=== PATIENT | female | born 1965 | race Caucasian/White ===

== ENCOUNTER 2024-02-22 10:08 | Day surgery (SDC) | payer BC ==
[~2024-02-22 10:08] MED LIST: LIDOCAINE 1% (10MG/ML) FOR IV START INTRADERMA PRN
[2024-02-22 11:21] VITALS: TEMP 97
[2024-02-22] MEDS: IV FLUID CONTINUATION 1,000 ML IV ONE (11:21)
[2024-02-22] MEDS: LACTATED RINGERS 1,000 ML IV SCH (11:23)
[2024-02-22] MEDS ORDERED: PROPOFOL 10 MG/ML 20 ML VIAL IV ONE (12:15)
--- NOTE | 2024-02-22 12:23 | P.PCN ---
Date of Procedure: 02/22/24 Procedure(s) Performed: BRIEF HISTORY: Patient is a 58-year-old, pleasant, white female scheduled follow-up upper endoscopy for evaluation of worsening GERD for the last few months duration. She is presently on Nexium 40 mg twice daily with some help.. PROCEDURE PERFORMED: Esophagogastroduodenoscopy with biopsy. PREOPERATIVE DIAGNOSIS: Longstanding history of GERD with worsening symptoms today. IV sedation per anesthesia. PROCEDURE: After informed consent was obtained, the patient was brought into the endoscopy unit. IV sedation was administered by Anesthesia under continuous monitoring. Initially the Olympus GIF-140 video endoscope was inserted into the mouth. Esophagus intubated without any difficulty. It was gradually advanced into the stomach and duodenum and carefully examined. The bulb and the second part of the duodenum appeared normal. The scope at this time was withdrawn to the stomach, adequately insufflated with air, and upon careful examination, mucosa of the antrum, patchy areas of erythema consistent with gastritis and biopsies were done from this area. Multiple small gastric polyps noted in the gastric body which were biopsied. Mucosa of the body, cardia and the fundus appeared normal. The scope was then withdrawn into the esophagus. Small sliding-type hiatal hernia noted. The GE junction was located at 39 cm from the incisors. It appeared irregular but there was no evidence of Casas's esophagus. The rest of the esophagus appeared normal. There were no erosions or ulcerations seen and the patient tolerated the procedure well. IMPRESSION: 1. Mild antral gastritis. 2. Small hiatal hernia but no evidence of Casas's esophagus. 3. Multiple small gastric polyps RECOMMENDATIONS: The findings of this examination were discussed with the patient as well as her family.. She was advised to follow-up with the biopsy results. Continue with Nexium 20 mg twice daily and follow antireflux measures.
[2024-02-22 12:31] VITALS: RESP 16
[2024-02-22 12:46] VITALS: BP 112/73; PULSE 73
== END 2024-02-22 13:07 | disposition home or self-care (01) ==
LOC: ORWHC2ENDO 10:08
PROVIDERS: ATTEND Internal Medicine Gastroenterology
DX: K29.50 Unspecified chronic gastritis without bleeding (principal); K31.7 Polyp of stomach and duodenum; K44.9 Diaphragmatic hernia without obstruction or gangrene; K21.9 Gastro-esophageal reflux disease without esophagitis; I47.10 Supraventricular tachycardia, unspecified; Z88.0 Allergy status to penicillin; Z79.899 Other long term (current) drug therapy; Z98.890 Other specified postprocedural states
CPT/HCPCS: 43239; J2704; 88305